=== PATIENT | female | born 1950 ===

== ENCOUNTER 2019-02-07 17:35 | Observation (INO) ==
[2019-02-07] MEDS ORDERED: OLOPATADINE BOTH EYES PRN (19:21)
[2019-02-07] MEDS ORDERED: ACETAMINOPHEN 325 MG TABLET PO PRN (19:35)
[2019-02-07] MEDS ORDERED: ONDANSETRON 4 MG/2 ML VIAL IV PRN (19:35)
[2019-02-07] MEDS ORDERED: ENOXAPARIN 40 MG/0.4 ML SYRINGE SUBCUT SCH (21:00)
[2019-02-07] MEDS ORDERED: NABUMETONE 500 MG TABLET PO SCH (21:00)
[2019-02-07] MEDS: GABAPENTIN 100 MG CAPSULE PO SCH (22:14)
[2019-02-07] MEDS: PANTOPRAZOLE 40 MG TABLET PO SCH (22:16)
[2019-02-07] MEDS: LEVOTHYROXINE 75 MCG TABLET PO SCH (22:18)
[2019-02-08 02:53] LABS: Basophils # 0.1 10*3/uL (0.0-0.2); Basophils % 0.9 % (0.0-0.8); Eosinophils # 0.1 10*3/uL (0.0-0.87); Eosinophils % 1.4 % (0.00-10.9); Hematocrit 40.7 VOL% (35.7-47.0); Immature Granulocytes % 0.3 %; Immature Granulocytes Absolute 0.02 #; Lymphocytes # 2.6 10*3/uL (1.4-4.0); Mean Corpuscular HGB Conc 31.9 GM/DL (32-36); Mean Corpuscular Volume 90.2 FL (87-102); Mean Platelet Volume 10.4 FL (9.6-12.0); Monocytes % 10.9 % (1.7-12.7); Neutrophils % 46.5 % (38.7-73.9); Platelet Count 259 T/CUMM (130-400); Red Blood Count 4.51 MC/CUMM (3.8-5.5); Red Cell Distribution Width 13.3 % (9.3-17.3); White Blood Count 6.5 T/CUMM (4-12)
[2019-02-08 03:23] LABS: Albumin 3.6 G/DL (3.4-5.0); Bilirubin,Total 0.6 MG/DL (0.2-1.0); Calcium 9.4 MG/DL (8.5-10.1); Osmolality,Calculated 281.3 MOS/KG (273-304); Risk Ratio 4.05; Thyroid Stimulating Hormone 3.69 uIU/ml (0.358-3.74); Total Protein 7.4 G/DL (6.4-8.3); VLDL CHOLESTEROL 32.2 MG/DL
[2019-02-08] MEDS ORDERED: VERAPAMIL SR 240 MG TABLET PO SCH (09:00)
[2019-02-08] MEDS: POTASSIUM CHLORIDE 20 MEQ TABLET PO SCH (09:44)
[2019-02-08] MEDS: ASPIRIN EC 81 MG TABLET PO SCH (09:45)
[2019-02-08] MEDS: CHOLECALCIFEROL 5,000 UNIT TABLET PO SCH (09:45)
[2019-02-08] MEDS: PANTOPRAZOLE 40 MG TABLET PO SCH ×2 (09:45→21:13)
[2019-02-08] MEDS: FOLIC ACID 1 MG TABLET PO SCH (09:45)
[2019-02-08] MEDS: LOSARTAN 50 MG TABLET PO SCH (09:45)
[2019-02-08] MEDS: hydroCHLOROthiazide 25 MG TABLET PO SCH (09:45)
[2019-02-08] MEDS: GABAPENTIN 100 MG CAPSULE PO SCH ×2 (09:50→21:12)
[2019-02-08] MEDS ORDERED: DIAZEPAM 5 MG TABLET PO ONE (10:53)
[2019-02-08] MEDS ORDERED: MAGNESIUM SULF RIDER 2 GM in PREMIX 1 EACH IV PRN (10:53)
[2019-02-08] MEDS ORDERED: diphenhydrAMINE CAP 25 MG CAPSULE PO ONE (10:53)
[2019-02-08] MEDS ORDERED: diphenhydrAMINE CAP 50 MG CAPSULE ONE (10:55)
[2019-02-08] MEDS ORDERED: MIDAZOLAM 2 MG/2 ML VIAL ONE (11:03)
[2019-02-08] MEDS ORDERED: LIDOCAINE 1% 20 ML VIAL ONE (11:03)
[2019-02-08] MEDS ORDERED: fentaNYL 100 MCG/2 ML VIAL ONE (11:03)
[2019-02-08] MEDS ORDERED: NITROGLYCERIN SL 0.4 MG TABLET SL PRN (11:17)
[2019-02-08] MEDS: SODIUM CHLORIDE 0.45% 1,000 ML IV SCH ×2 (14:48→20:30)
[2019-02-08] MEDS: POTASSIUM CHLORIDE RIDER 10 MEQ in PREMIX 1 EACH IV PRN ×2 (16:08→17:25)
[2019-02-08] MEDS: LEVOTHYROXINE 75 MCG TABLET PO SCH (21:13)
[2019-02-09] MEDS: SODIUM CHLORIDE 0.45% 1,000 ML IV SCH ×3 (02:39→11:08)
[2019-02-09 05:51] LABS: Basophils # 0.1 10*3/uL (0.0-0.2); Basophils % 1.1 % (0.0-0.8); Eosinophils # 0.1 10*3/uL (0.0-0.87); Hematocrit 37.6 VOL% (35.7-47.0); Hemoglobin 11.9 GM/DL (12.0-16.0); Immature Granulocytes % 0.4 %; Immature Granulocytes Absolute 0.02 #; Lymphocytes # 1.9 10*3/uL (1.4-4.0); Mean Corpuscular HGB Conc 31.6 GM/DL (32-36); Mean Corpuscular Volume 91.7 FL (87-102); Mean Platelet Volume 10.9 FL (9.6-12.0); Monocytes % 9.1 % (1.7-12.7); Neutrophils % 53.4 % (38.7-73.9); Platelet Count 234 T/CUMM (130-400); Red Cell Distribution Width 13.4 % (9.3-17.3); White Blood Count 5.6 T/CUMM (4-12)
[2019-02-09 06:22] LABS: Calcium 8.8 MG/DL (8.5-10.1); Osmolality,Calculated 284.1 MOS/KG (273-304)
[2019-02-09] MEDS: CHOLECALCIFEROL 5,000 UNIT TABLET PO SCH (09:02)
[2019-02-09] MEDS: PANTOPRAZOLE 40 MG TABLET PO SCH (09:02)
[2019-02-09] MEDS: hydroCHLOROthiazide 25 MG TABLET PO SCH (09:02)
[2019-02-09] MEDS: POTASSIUM CHLORIDE 20 MEQ TABLET PO SCH (09:02)
[2019-02-09] MEDS: GABAPENTIN 100 MG CAPSULE PO SCH (09:02)
[2019-02-09] MEDS: FOLIC ACID 1 MG TABLET PO SCH (09:02)
[2019-02-09] MEDS: ASPIRIN EC 81 MG TABLET PO SCH (09:02)
[2019-02-09] MEDS: LOSARTAN 50 MG TABLET PO SCH (09:02)
[2019-02-09 13:07] VITALS: BP 127/70
[2019-02-13] MEDS ORDERED: METHOTREXATE 2.5 MG TABLET PO SCH (08:00)
== END 2019-02-09 14:42 | disposition home or self-care (01) ==
LOC: EDBD → EDUNIT# → N.ED 17:35 → N.EDINP 17:35 → N.TELES 20:46
PROVIDERS: ADMIT Internal Medicine; ATTEND Internal Medicine
PROC: CLCCHCL (ICD-10-PCS; 2019-02-08 11:15)